=== PATIENT | male | born 1975 | race Caucasian/White ===

== ENCOUNTER 2017-10-01 22:01 | Emergency (ER) | payer OTHER, SELFPAY ==
[2017-10-01 22:02] VITALS: BP 170/81; PULSE 117; RESP 20; TEMP 37.5; O2SAT 96; BMI 32.8
--- NOTE | 2017-10-01 22:26 | ED.DCSUM_ITS ---
- ER Visit Summary Date of Service: 10/01/17 Chief Complaint: Abscess History of Present Illness: The patient is a 42 M left axillary abscess over 3 days. Seen in urgent care this morning states had incised and drained, there is exudative drainage. Cultures were sent per patient. Started on Bactrim. Using warm compresses, however swelling has returned. There is no drainage. He states he had a temporal artery temperature of 102.8. No medications were taken. No diabetes history. Similar symptoms not requiring I&D in the past. Physical Examination: General: Alert and oriented ?3, no acute distress HEENT: Normocephalic, atraumatic. Moist mucosa membranes Neck: supple, nontender. Cardiovascular: Regular rate and rhythm, no murmurs Respiratory: Normal breath sounds, symmetric, no distress Abdomen: Soft, nontender, nondistended Extremities: Nontender, no edema, pulses intact ?4 Neuro: no focal neurological deficits. Skin: Left axilla, 2 half centimeter area of induration with fluctuance, there is straight incision that has closed. Mild redness around this region. There is no streaking. Test Results: [] Emergency Department Course and Treatment: Evaluation patient's incision has closed with increasing fluctuance. I discussed re-incise and drainage for which she agreed. Performed with no complications. There was exudative drainage. Performed a cruciate incision to keep open, in addition, I did place 1/4 inch packing to allow continued drainage. He will finish his antibiotics. He will call PCP for follow-up on Saturday for a wound check. Patient afebrile in the ED. Is nontoxic. Nondiabetic. The redness has not progressed. Discussed good wound care with the patient. Return if any worsening symptoms. Treatment Plan: [] Disposition: Discharge Impression: Left axillary abscess status post I&D This note was generated with [email or web address] dictation software. It may contain incorrect words, spelling, and punctuation that were not noted in review of the chart prior to signing ED Disposition - Plan for ED Patient: Disposition: Home or Assisted Living Chief Complaint: Fever Diagnosis: Abscess of left axilla Instructions: ED Abscess IandD Referrals: Consuelo Burt MD [Primary Care Provider] - 2 Days Additional Instructions: Continue normal washing. If packing falls out keep out and did not repack. Finish her antibiotics. Follow-up with your doctor next 2-3 days for a wound check.
[2017-10-01 23:24] VITALS: RESP 16
== END 2017-10-01 23:25 | disposition home or self-care (01) ==
PROVIDERS: Emergency Provider Emergency Medicine; Family Provider Internal Medicine; PCP Internal Medicine
DX: L02.412 Cutaneous abscess of left axilla (principal)
CPT/HCPCS: 10061; 10060; 99283

== ENCOUNTER → 2018-05-16 07:01 | Outpatient (CLI) | payer OTHER, SELFPAY | PROVIDERS: Family Provider Internal Medicine; PCP Internal Medicine | DX: R69 Illness, unspecified (principal) ==

== ENCOUNTER → 2018-05-19 07:01 | Outpatient (CLI) | payer OTHER, SELFPAY ==
[2018-05-19 10:20] LABS: Absolute Lymphocyte Count 1.56 X10^3/ul (0.83-4.51); Absolute Neutrophil Count 3.8 X10^3/uL (2.0-7.7); Basophil# 0.04 X10^3/uL; Basophil% 0.6 % (0-1); Eosinophil# 0.12 X10^3/uL; Eosinophils% 1.9 % (0-5); Hematocrit 47.9 % (40-54); Hemoglobin 15.9 g/dl (13.0-16.5); Lymphocyte # 1.56 X10^3/ul (4.0); Lymphocyte % 25.2 % (19-41); Mean Corp Hgb Conc 33.2 g/gl (32-36); Mean Corpuscular Hgb 28.5 pg (27.0-32.0); Mean Corpuscular Volume 85.8 fL (80-94); Mean Platelet Vol. 8.9 fl (6.2-12.0); Monocyte# 0.67 X10^3/uL; Monocyte% 10.8 % (0-10); Neutrophil # 3.81 X10^3/uL (2.7-7.7); Neutrophil % 61.5 % (47-70); POSITIVE COUNT NO; POSITIVE DIFFERENTIAL NO; POSITIVE MORPHOLOGY NO; Platelet Count 286 K/mm3 (150-450); RBC Distribution Width CV 13.3 % (11.6-14.6); RBC Distribution Width SD 41.7 fl (35.1-43.9); Red Blood Count 5.58 M/mm3 (4.6-6.2); White Blood Count 6.2 K/mm3 (4.4-11.0)
[2018-05-19 10:44] LABS: ALB/GLOB Ratio 0.9 RATIO (0.9-2.4); AST(SGOT) 21 U/L (15-37); Alanine Aminotransfer ALT/SGPT 35 U/L (16-61); Albumin, Serum 3.5 g/dL (3.2-5.0); Alkaline Phosphatase 75 U/L (45-117); Anion Gap 9 (5-15); BUN 16 mg/dL (7-18); BUN/Creat Ratio 12.3 RATIO (10-20); Calcium,Total 8.5 mg/dL (8.5-10.1); Chloride 104 mmol/L (98-107); Cholesterol 226 mg/dL (200); EST Glomerular Filtration Rate 64 mL/min (>60); Est Glom Filt Rate - Afr Amer 78 mL/min (>60); Globulin 3.8 g/dL (2.2-4.2); Glucose 80 mg/dL (74-106); High Density Lipoprotein 32 mg/dL; PSA,Total - Annual Screen 0.64 ng/mL (0.00-4.00); Potassium 4.2 mmol/L (3.5-5.1); Protein, Total 7.3 g/dL (6.4-8.2); Sodium Level 140 mmol/L (136-145); Thyroid Stim Hormone (TSH) 1.67 uIU/mL (0.358-3.74); Triglycerides 107 mg/dL; Very Low Density Lipoprotein 21 mg/dL (5-40)
--- OUTSIDE RECORDS SUMMARY | 2018-08-20 16:43 | XMS RPT_ITS ---
:1975 Author Organization OHIP Care Team Providers Name Role Phone Rachel Cowart Attending Unavailable Consuelo Burt MD Referring Unavailable Rachel Cowart Consulting Unavailable DEAN DOCKERY Attending Unavailable DEAN DOCKERY Referring Unavailable Consuelo Burt Primary Care Unavailable DEAN DOCKERY Attending Unavailable DEAN DOCKERY Referring Unavailable Consuelo Burt Primary Care Unavailable Consuelo Burt Primary Care Unavailable Jamil Parmar Attending Unavailable Purpose Purpose PROBLEMS PROBLEMS No Problem Records FoundPROCEDURES PROCEDURES No Procedure Records FoundVITAL SIGNS VITAL SIGNS No Vital Signs Records FoundRESULTS RESULTS CBC W/DIFF, AUTOMATED Collected: 05/19/2018 Status: F Source: RICA 7:[address] [facility] REPOSITORY TYPE CODE TESTS RESULT OUT OF RANGE REFERENCE UNITS LAB L100.1000 4.4-11.0 K/mm3 Normal WBC 6.2 LAB L100.1200 4.6-6.2 M/mm3 Normal RBC 5.58 LAB L100.1300 13.0-16.5 g/dl Normal HGB 15.9 LAB L100.1400 40-54 % Normal HCT 47.9 LAB L100.1500 80-94 fL Normal MCV 85.8 LAB L100.1600 27.0-32.0 pg Normal MCH 28.5 LAB L100.1700 32-36 g/gl Normal MCHC 33.2 LAB L100.1810 11.6-14.6 % Normal RDW CV 13.3 LAB L100.1820 35.1-43.9 fl Normal RDW SD 41.7 LAB L100.1900 150-450 K/mm3 Normal PLT 286 LAB L100.2000 6.2-12.0 fl Normal MPV 8.9 LAB L100.2100 47-70 % Normal NEUT% 61.5 LAB L100.2200 19-41 % Normal LY% 25.2 LAB L100.2300 0-10 % High MONO% 10.8 LAB L100.2400 0-5 % Normal EO% 1.9 LAB L100.2500 0-1 % Normal BASO% 0.6 LAB L100.2550 0.0-0.9 % Normal IM GRAN % 0.000 Result Comment: IG% - Immature Granulocytes (promyelocytes, myelocytes and metamyelocytes) > 1% indicates that a LEFT SHIFT is Present. LAB L100.2620 2.0-7.7 X10 3/uL Normal Absolute Neut 3.8 LAB L100.2720 0.83-4.51 X10 3/ul Normal Absolute Lymph 1.56 Performed By: #### L100.0100 #### [facility] [address] [place], [address] COMPREHENSIVE METABOLIC Collected: 05/19/2018 Status: F Source: [facility] 7:[address] [facility] REPOSITORY TYPE CODE TESTS RESULT OUT OF RANGE REFERENCE UNITS LAB L501.0100 74-106 mg/dL Normal GLU 80 Result Comment: Please note revised GLUCOSE reference range effective 2017. LAB L501.1000 7-18 mg/dL Normal BUN 16 LAB L501.1100 0.70-1.30 mg/dL Normal CREAT,SERUM 1.30 Result Comment: The validity of the calculated GFR AND GFRAA in patients over 70 years has not been determined. Clinical correlation is essential. LAB L501.1110 >60 mL/min Normal EST GFR 64 Result Comment: Non- GFR Calc LAB L501.1115 >60 mL/min Normal EST GFR - AA 78 Result Comment: GFR Calc LAB L501.1300 10-20 RATIO Normal BUN/CRE 12.3 LAB L501.1500 6.4-8.2 g/dL T Normal PROT 7.3 LAB L501.1800 3.2-5.0 g/dL Normal ALB 3.5 LAB L501.1950 2.2-4.2 g/dL Normal GLOB 3.8 LAB L501.2000 0.9-2.4 RATIO Normal A/G 0.9 LAB L501.2200 8.5-10.1 mg/dL CA Normal 8.5 LAB L501.4100 15-37 U/L Normal AST 21 LAB L501.4305 45-117 U/L Normal ALK P 75 LAB L501.4405 16-61 U/L Normal ALT 35 LAB L501.4600 0.20-1.00 mg/dL T Normal BILI 0.30 LAB L501.5300 136-145 mmol/L NA Normal 140 LAB L501.5600 3.5-5.1 mmol/L K Normal 4.2 LAB L501.5900 98-107 mmol/L CL Normal 104 LAB L501.6100 21.0-32.0 mmol/L Normal CO2 27.0 LAB L501.6200 5-15 Normal GAP 9 Performed By: #### L500.4050, L500.4100, L501.9520, L501.9910 #### [facility] [address] [place], [address] LIPID PROFILE Collected: 05/19/2018 Status: F Source: [place] 7:[address] [facility] REPOSITORY TYPE CODE TESTS RESULT OUT OF RANGE REFERENCE UNITS LAB L501.4900 200 mg/dL High CHOL 226 Result Comment: <200 mg/dL Desirable 200-240 mg/dL Borderline >240 mg/dL High Risk LAB L501.5000 mg/dL Normal TRIG 107 Result Comment: The drugs N-Acetylcysteine and Metamizole may falsely depress this assay. Serum Triglycerides Reference Interval Normal <150 mg/dL Borderline high 150 - 199 mg/dL High 200 - 499 mg/dL Very High > or = 500 mg/dL LAB L501.6400 mg/dL Low HDL 32 Result Comment: The drugs N-Acetylcysteine and Metamizole may falsely depress this assay. Reference Range HDL <40 mg/dL Low HDL Cholesterol HDL >or= 60 mg/dL High HDL Cholesterol LAB L501.6500 0-130 mg/dL High LDL 173 LAB L501.6600 5-40 mg/dL Normal VLDL 21 Performed By: #### L500.4050, L500.4100, L501.9520, L501.9910 #### [facility] [address] [place], [address] THYROID STIM HORMONE Collected: 05/19/2018 Status: F Source: RICA (TSH) 7:[address] [facility] REPOSITORY TYPE CODE TESTS RESULT OUT OF RANGE REFERENCE UNITS LAB L501.9520 0.358-3.74 uIU/mL Normal TSH 1.67 Performed By: #### L500.4050, L500.4100, L501.9520, L501.9910 #### [facility] [address] [facility] [place], [address] PSA,TOTAL - ANNUAL Collected: 05/19/2018 Status: F Source: [place] SCREEN 7:[address] [facility] REPOSITORY TYPE CODE TESTS RESULT OUT OF RANGE REFERENCE UNITS LAB L501.9910 0.00-4.00 ng/mL Normal PSA,TOT 0.64 SCREEN Result Comment: This test was performed using the TPSA assay method for the psicofxp chemistry system. Values obtained with different assay methods cannot be used interchangably. When changing PSA assays in the course of monitoring a patient, additional sequential testing should be carried out to confirm baseline values. Performed By: #### L500.4050, L500.4100, L501.9520, L501.9910 #### [facility] [address] [facility] [place], [address] EMERGENCY DEPARTMENT Observed: 10/01/2017 Status: F Source: RICA SUMMARY 11:[address] [facility] REPOSITORY [facility] Medical Records Department [address] [address] Emergency Department Summary 10/01/17 2225 MR#: [id number] Acct: [id number] Name: ANTOINE STRONG Rep #: [id number] : 1975 42 From: Jamil Flores PCP: Consuelo Burt MD Status: PRE ER - ER Visit Summary Date of Service: 10/01/17 Chief Complaint: Abscess History of Present Illness: The patient is a 42 M left axillary abscess over 3 days. Seen in urgent care this morning states had incised and drained, there is exudative drainage. Cultures were sent per patient. Started on Bactrim. Using warm compresses, however swelling has returned. There is no drainage. He states he had a temporal artery temperature of 102.8. No medications were taken. No diabetes history. Similar symptoms not requiring I AND D in the past. Physical Examination: General: Alert and oriented 3, no acute distress HEENT: Normocephalic, atraumatic. Moist mucosa membranes Neck: supple, nontender. Cardiovascular: Regular rate and rhythm, no murmurs Respiratory: Normal breath sounds, symmetric, no distress Abdomen: Soft, nontender, nondistended Extremities: Nontender, no edema, pulses intact 4 Neuro: no focal neurological deficits. Skin: Left axilla, 2 half centimeter area of induration with fluctuance, there is straight incision that has closed. Mild redness around this region. There is no streaking. Test Results: [] Emergency Department Course and Treatment: Evaluation patient's incision has closed with increasing fluctuance. I discussed re-incise and drainage for which she agreed. Performed with no complications. There was exudative drainage. Performed a cruciate incision to keep open, in addition, I did place 1/4 inch packing to allow continued drainage. He will finish his antibiotics. He will call PCP for follow-up on Saturday for a wound check. Patient afebrile in the ED. Is nontoxic. Nondiabetic. The redness has not progressed. Discussed good wound care with the patient. Return if any worsening symptoms. Treatment Plan: [] Disposition: Discharge Impression: Left axillary abscess status post I AND D This note was generated with [employer] dictation software. It may contain incorrect words, spelling, and punctuation that were not noted in review of the chart prior to signing ED Disposition - Plan for ED Patient: Disposition: Home or Assisted Living Chief Complaint: Fever Diagnosis: Abscess of left axilla Instructions: ED Abscess IandD Referrals: Consuelo Burt MD [Primary Care Provider] - 2 Days Additional Instructions: Continue normal washing. If packing falls out keep out and did not repack. Finish her antibiotics. Follow-up with your doctor next 2-3 days for a wound check. What to do if you have Problems For any increased pain, shortness of breath, bleeding, nausea or vomiting, chest pain, or any unexpected problems, contact your Primary Care Provider. Call [facility] ([phone]) or report to the closest Emergency Room. Call 911 if necessary. 10/01/17 2313 <Electronically signed by Jamil Flores> Date Jamil Flores Cosigner Signature (If Indicated): Date CC: Consuelo Burt MD WOUND Observed: 10/01/2017 Status: F Source: DANIEL CULTURE/STAIN 7:15 AM [facility] REPOSITORY Sp. Request/Comment: - Swab Smear Result - Many Gram positive cocci in clusters --> ABNORMAL ALERT Rare Polymorphonuclear leukocytes Culture Result - Many Methicillin resistant Staphylococcus aureus --> ABNORMAL ALERT ORGANISM: Methicillin resistant Staphylococcus aureus METHOD: Minimum inhibitory concentration(Vitek) Antibiotic Interp MART Status Erythromycin RESISTANT >=8 F Clindamycin SUSCEPTIBLE 0.25 F Testing for inducible clindamycin resistance was performed. Tetracycline SUSCEPTIBLE <=1 F Vancomycin SUSCEPTIBLE 1 F Oxacillin RESISTANT >=4 F Oxacillin resistant staphylococci are resistant to all beta lactam antibiotics (except new cephalosporins with anti MRSA activity). Trimeth sulfameth SUSCEPTIBLE <=10 F Gentamicin SUSCEPTIBLE <=0.5 F Rifampin SUSCEPTIBLE <=0.5 F Rifampin should not be used alone for antimicrobial therapy. Daptomycin SUSCEPTIBLE 0.5 F Linezolid SUSCEPTIBLE 2 F Doxycycline SUSCEPTIBLE <=0.5 F Performed By: #### WCUL #### [facility] [address] [place], [place] [address] CNOV Observed: 10/01/2017 Status: COMPLETED Source: FREDY 6:45 AM [facility] REPOSITORY Office Visit (UCWSTR) ANTOINE STRONG ([id number]) 1975 M Date Time Provider Department 10/01/17 6:45 AM LAYA MOLINA) [facility] During your visit today, we recorded the following information about you: Temperature Pulse Respiration Blood pressure 97.4 degrees 78/minute 16/minute 122/78 Weight 112 kg Laya Molina PA-C 10/01/2017 8:36 AM Signed 10/01/2017 Patient presents with: Cyst: under left armpit x 3-4 days SUBJECTIVE: This is a 42 year old that is here today for Complaint(s) of cyst in left axilla x 3-4 days. Area is painful and slightly red. Notes some drainage last night. Denies fever/chills. PAST MEDICAL HISTORY Diagnosis Date - Acne - Dermatitis Poison Danna - Hyperlipidemia - Hypokalemia - Low testosterone - Vitamin D deficiency ALLERGIES Patient has no known allergies. MEDICATIONS Current Outpatient Prescriptions: ergocalciferol, vitamin D2, (VITAMIN D2 ORAL) Take by mouth. triamcinolone acetonide (KENALOG) 0.1 % cream Apply 1 application to affected area three times daily. Apply sparingly to area for rash/itching. (Patient not taking: Reported on 10/01/2017 ) imiquimod (ALDARA) 5 % cream Apply 1 application to affected area daily at bedtime. (Patient not taking: Reported on 10/01/2017 ) testosterone cypionate (DEPO-TESTOSTERONE) 200 mg/mL injection Inject 0.3 mL intramuscularly once each week. (Patient not taking: Reported on 10/01/2017 ) MULTIVIT ANDMINERALS/FERROUS FUM (MULTI VITAMIN ORAL) Take by mouth once daily. DOCOSAHEXANOIC ACID/EPA (FISH OIL ORAL) Take by mouth once daily. Takes when he remembers No current facility-administered medications for this visit. SOCIAL HISTORY Social History Marital status: Spouse name: Years of education: Number of children: 3 Occupational History Occupation Employer Comment [employer] Social History Main Topics Smoking status: Never Smoker Smokeless tobacco: Never Used Alcohol use: Yes Comment: rarely Drug use: No Sexual activity: Yes Partners with: Female Social History Narrative Patient has 2 biological children and one adopted REVIEW OF SYSTEMS All other reviewed and negative other than HPI. OBJECTIVE: BP 122/78 Pulse 78 Temp 36.3 ?C (97.4 ?F) (Tympanic) Resp 16 Wt 112 kg (247 lb) BMI 32.74 kg/m? APPEARANCE Well appearing, alert, in no acute distress, well- hydrated, well nourished. SKIN approximately 2 x 1.5 cm area of indurated erythema with fluctuance, overlying skin intact. Approximately 3.5 x 2 cm area of surrounding erythema located in left axilla. PLAN: After informed consent was obtained, using Betadine for cleansing and 1% LIDOCAINE for anesthetic, with sterile technique, an incision was made into the abscess cavity which was then drained of purulent material. Culture was obtained. Procedure was well tolerated. Dressing was applied and wound care instructions were provided. continue frequent warm tub soaks until abscess resolves. Medication(s) given today: Yes: Bactrim DS ASSESSMENT/PLAN: 1. Abscess, axilla - ICD9: 682.3, ICD10: L02.419 IANDD as above - Begin treatment with Trimethoprim-sulfamethozazole (Bactrim) 2 DS PO BID - No lymphangetic streaking, this was defined for patient to watch for and to seek medical care immediately if appears - Follow up for recheck in three days - WOUND CULTURE AND GRAM STAIN Return to clinic as needed for pain, increased swelling, or fever. The patient indicates understanding of these issues and agrees with the plan. Reviewed red flags and when to seek care sooner. Laya Molina PA-C Referring Provider: SELF [200] Allergies As of Date: 10/01/2017 (No Known Allergies) Date Reviewed: 10/01/2017 Reviewed by: Mari Katz Ma - Fully Assessed Reason for Visit: Cyst [260] Cmt: under left armpit x 3-4 days Primary Visit Diagnosis:Abscess, axilla [L02.419] Order(s):sulfamethoxazole-trimethoprim (BACTRIM DS) 800-160 mg per tabletTake 1 tablet by mouth twice daily for 10 days.Disp: 20 tabletRfl: 0 WOUND CULTURE AND GRAM STAIN [SQWCUL] Order #: [id number] Prescriptions as of 10/01/2017 Sig: VITAMIN D2 ORAL Take by mouth. SULFAMETHOXAZOLE 800 MG-TRIME* Take 1 tablet by mouth twice * TRIAMCINOLONE ACETONIDE 0.1 %* Apply 1 application to affect* Patient not taking: Reported on 10/01/2017 IMIQUIMOD 5 % TOPICAL CREAM P* Apply 1 application to affect* Patient not taking: Reported on 10/01/2017 TESTOSTERONE CYPIONATE 200 MG* Inject 0.3 mL intramuscularly* Patient not taking: Reported on 10/01/2017 MULTI VITAMIN ORAL Take by mouth once daily. FISH OIL ORAL Take by mouth once daily. Ta* Problem List As Of Date 10/01/2017 Noted Resolved ACNE NEC [L70.8] INVALID FOR* FOLLICULITIS///HAIR DISEASES NEC [L73.8] INVALID FOR* CORNS AND CALLOSITIES [L84] INVALID FOR* Male hypogonadism [E29.1] INVALID FOR* Prescriptions ordered this encounter Disp Refills Start End SULFAMETHOXAZOLE 800 MG-TRIMETHOPRIM* 20 t* 0 10/01/2017 10/11/2017 Cmt: Ok to give generic equivalent Route: ORAL Sig: Take 1 tablet by mouth twice daily for 10 days. Encounter Status:Closed by LAYA MOLINA PA-C on 10/01/17 PROGRESS Observed: 10/01/2017 Status: COMPLETED Source: [place] 6:43 AM [facility] REPOSITORY [facility] ID: [id number] Author: Laya Molina Service: (none) Author Type: Physician Pill Packer Type: Progress Notes Filed: 10/01/2017 8:36 AM Note Text: 10/01/2017 Patient presents with: Cyst: under left armpit x 3-4 days SUBJECTIVE: This is a 42 year old that is here today for Complaint(s) of cyst in left axilla x 3-4 days. Area is painful and slightly red. Notes some drainage last night. Denies fever/chills. PAST MEDICAL HISTORY Diagnosis Date - Acne - Dermatitis Poison Danna - Hyperlipidemia - Hypokalemia - Low testosterone - Vitamin D deficiency ALLERGIES Patient has no known allergies. MEDICATIONS Current Outpatient Prescriptions: ergocalciferol, vitamin D2, (VITAMIN D2 ORAL) Take by mouth. triamcinolone acetonide (KENALOG) 0.1 % cream Apply 1 application to affected area three times daily. Apply sparingly to area for rash/itching. (Patient not taking: Reported on 10/01/2017 ) imiquimod (ALDARA) 5 % cream Apply 1 application to affected area daily at bedtime. (Patient not taking: Reported on 10/01/2017 ) testosterone cypionate (DEPO-TESTOSTERONE) 200 mg/mL injection Inject 0.3 mL intramuscularly once each week. (Patient not taking: Reported on 10/01/2017 ) MULTIVIT ANDMINERALS/FERROUS FUM (MULTI VITAMIN ORAL) Take by mouth once daily. DOCOSAHEXANOIC ACID/EPA (FISH OIL ORAL) Take by mouth once daily. Takes when he remembers No current facility-administered medications for this visit. SOCIAL HISTORY Social History Marital status: Spouse name: Years of education: Number of children: 3 Occupational History Occupation Employer Comment [employer] Social History Main Topics Smoking status: Never Smoker Smokeless tobacco: Never Used Alcohol use: Yes Comment: rarely Drug use: No Sexual activity: Yes Partners with: Female Social History Narrative Patient has 2 biological children and one adopted REVIEW OF SYSTEMS All other reviewed and negative other than HPI. OBJECTIVE: BP 122/78 Pulse 78 Temp 36.3 ?C (97.4 ?F) (Tympanic) Resp 16 Wt 112 kg (247 lb) BMI 32.74 kg/m? APPEARANCE Well appearing, alert, in no acute distress, well-hydrated, well nourished. SKIN approximately 2 x 1.5 cm area of indurated erythema with fluctuance, overlying skin intact. Approximately 3.5 x 2 cm area of surrounding erythema located in left axilla. PLAN: After informed consent was obtained, using Betadine for cleansing and 1% LIDOCAINE for anesthetic, with sterile technique, an incision was made into the abscess cavity which was then drained of purulent material. Culture was obtained. Procedure was well tolerated. Dressing was applied and wound care instructions were provided. continue frequent warm tub soaks until abscess resolves. Medication(s) given today: Yes: Bactrim DS ASSESSMENT/PLAN: 1. Abscess, axilla - ICD9: 682.3, ICD10: L02.419 IANDD as above - Begin treatment with Trimethoprim-sulfamethozazole (Bactrim) 2 DS PO BID - No lymphangetic streaking, this was defined for patient to watch for and to seek medical care immediately if appears - Follow up for recheck in three days - WOUND CULTURE AND GRAM STAIN Return to clinic as needed for pain, increased swelling, or fever. The patient indicates understanding of these issues and agrees with the plan. Reviewed red flags and when to seek care sooner. Laya Molina PA-C ALLERGIES ALLERGIES DATE TYPE / CODE NAME / CODE REACTION SEVERITY SOURCE 10/01/2017 Drug No Known Unknown [facility] Allergy/416 Allergies/X12728 Hospital 844884(SNOM 0388(RXNORM) Repository ED CT) Drug NO KNOWN [facility] Class/75952 ALLERGIES [facility] 1003(SNOMED Repository CT) ENCOUNTERS ENCOUNTERS ADMIT/DISCHARGE ACCOUNT ADMITTING ENCOUNTER LOCATION SOURCE NUMBER CLASS 06/11/2018 [id number] Ambulatory Building:[facility] [place] Practices Repository 05/19/2018 [id number] Ambulatory [facility] ing:MTLAB Repository 05/16/2018 [id number] Ambulatory [facility] ing:MTLAB Repository 10/01/2017/10/02/19 [id number] Emergency [address] ing:ED Repository 10/01/2017/10/03/19 [id number] Ambulatory [address] Repository FUNCTIONAL STATUS FUNCTIONAL STATUS No Functional Status Records FoundEQUIPMENT EQUIPMENT No Equipment Records FoundPAYERS PAYERS ENCOUNTER GUARANTOR PAYER SUBSCRIBER SOURCE 06/11/2018 Antoine Benítez Primary Antoine Benítez OHIP Practices Sharon: Insurance:Brooke Herrera: Repository [id number] icy Number: [id number] Bey [id number] [address] [place], [place] Date:8767-82-65[place], [place] [address]Duf: (803) Name:[facility] [address] [address]Cos: (hp) [address], [place] [phone] (LH) [id number]: 06/11/2018 Secondary Antoine K OHIP Practices Insurance:[place] MillerDOB: Repository /BSPolicy Number: [id number] 4 Bey Date: - [place], [place] [id number] [address]Lcr: Name:[address] [address], [place] 30 (HP) [id number]: 06/11/2018 Tertiary Antoine K OHIP Practices Insurance:Medical MillerDOB: Repository [facility] [id number] Number: 4 Bey [id number] [place], [place] Date:2015-06-03 [address]Nlb: [id number] ~(3 Name:[address] HP) [address], [place] [id number]: 05/19/2018 ANTOINE K Primary ANTOINE K Rica [id number] Insurance:AULTCAREPol MILLERDOB: Community BEY icy Number: [id number], [place] [id number] Repository [address]Okx: [address] e Date:2210-34-29SJ [phone] (HP) [address] [place] [address]SX: 05/19/2018 Secondary NOT GIVENUNK [place] Insurance:SELF PAY [facility] Number: Effective Repository Date:2018-05-19 05/16/2018 ANTOINE K Primary ANTOINE K [place] [id number] Insurance:AULTCAREPol MILLERDOB: Community BEY icy Number: [id number], [place] [id number] Repository [address]Tdx: [address] Date:4917-92-69QF [phone] (HP) [address], [place] [address]OX: 05/16/2018 Secondary NOT GIVENUNK [place] Insurance:SELF PAY [facility] Number: Effective Repository Date:2018-05-16 10/01/2017 ANTOINE K Primary ANTOINE K [place] [id number] Insurance:AULTCARESanjeev BOYS TOWNDOB: [facility] BEY [facility] Number: [id number], [place] [id number] Repository [address]Dpc: [phone]) e Date:4724-30-60OK [phone] () [address], [place] [address]ND: 10/01/2017 Secondary NOT GIVENUNK [place] Insurance:SELF PAY [facility] Number: Effective Repository Date:2017-10-01 SOCIAL HISTORY SOCIAL HISTORY No Social History Records FoundFAMILY HISTORY FAMILY HISTORY No Family History Records FoundPREGNANCY No Status Records FoundADVANCE DIRECTIVES ADVANCE DIRECTIVES No Advanced Directives Records FoundINFORMATION SOURCE INFORMATION SOURCE DATE CREATED AUTHOR AUTHOR'S ORGANIZATION 06/25/2018 TRI
== END ==
PROVIDERS: Family Provider Internal Medicine; PCP Internal Medicine
DX: E29.1 Testicular hypofunction (principal); Z12.5 Encounter for screening for malignant neoplasm of prostate
CPT/HCPCS: 36415; 80053; 80061; 84153; 84443; 85025; G0103

== ENCOUNTER → 2018-12-02 07:07 | Outpatient (CLI) | payer SELFPAY ==
[2018-12-03 16:07] LABS: CHOLESTEROL TOTAL 289 mg/dL (100-199); HDL-C 44 mg/dL (>39); HDL-P TOTAL 28.4 umol/L (>=30.5); SMALL LDL-P 1481 nmol/L (<=527); TRIGLYCERIDES 115 mg/dL (0-149)
[2018-12-05 16:53] LABS: Testosterone Free 11.6 pg/mL (6.8-21.5)
[2018-12-05 17:04] LABS: INSULIN RESISTANCE SCORE 43 (<=45); LDL SIZE 20.9 nm (>20.5); LDL-C 222 mg/dL (0-99); LDL-P 2552 nmol/L (<1000)
== END ==
PROVIDERS: Family Provider Internal Medicine; PCP Internal Medicine; Referring Provider Nurse Practitioner; Visit Provider Nurse Practitioner
DX: E55.9 Vitamin D deficiency, unspecified (principal); E29.1 Testicular hypofunction; E78.00 Pure hypercholesterolemia, unspecified
CPT/HCPCS: 36415; 80061; 83704; 84402

== ENCOUNTER → 2018-12-23 13:30 | Outpatient (CLI) | payer SELFPAY ==
--- NOTE | 2018-12-23 13:36 | CT_ITS ---
STUDY: CARDIAC CALCIUM SCORING - CT CHEST REASON FOR EXAM: Male, 43 years old. Screening RADIATION DOSAGE (If Supplied By Facility): CTDIvol = ( 12.19 ) mGy, DLP = ( 170.66 ) mGycm TECHNIQUE: Axial non-enhanced images were acquired through the heart for the sole purpose of measuring coronary artery calcium. Individualized dose optimization techniques were used for this CT. COMPARISON: None. FINDINGS: Please see the patient's medical record for a personalized calcium score. The visualized lungs are clear. The visualized soft tissues are within normal limits. CT/Limited Chest CT w/CCTA IMPRESSION: Please see the patient's medical record for a personalized calcium score. Please go to: [email or web address] , for a description of the calculator. Electronically Signed: Jose Mejia, at 14:40 EDT Tel , Service support ,
[2018-12-23 14:14] VITALS: BP 145/75; PULSE 62; RESP 16; O2SAT 99; BMI 32.1
--- NOTE | 2018-12-25 10:08 | CA.SCORE ---
Calcium Scoring Date of Study:: 12/23/18 Coronary Calcium Scoring: High-resolution Computed Tomographic imaging of the chest was performed on [ ], with particular attention paid to the coronary arteries. Images from the examination were analyzed for the presence and extent of coronary artery calcification , using coronary calcium quantification software. The patient tolerated the procedure well and there were no complications. The results of the coronary calcification analysis are provided below. - Findings Left Main (LM): 0 Left Anterior Descending (LAD): 0 Left Circumflex (LCX): 0 Right Coronary Artery (RCA): 0 Total Agatston Score: 0 Percentile Rankin - Conclusion Calcium Scoring Interpretation: Calcium Score Interpretation 0 No identifiable atherosclerotic plaque. Very low cardiovascular disease risk. <5% chance of presence coronary artery disease A Negative Examination
== END ==
PROVIDERS: Family Provider Internal Medicine; PCP Internal Medicine; Referring Provider Nurse Practitioner; Visit Provider Nurse Practitioner
DX: E78.00 Pure hypercholesterolemia, unspecified (principal)
CPT/HCPCS: 75571; 76380

== ENCOUNTER → 2019-05-05 07:10 | Outpatient (CLI) | payer OTHER, SELFPAY ==
[2018-12-23 14:14] VITALS: BMI 32.1
[2019-05-05 10:21] LABS: Absolute Lymphocyte Count 1.29 X10^3/uL (0.83-4.51); Absolute Neutrophil Count 2.7 X10^3/uL (2.0-7.7); Basophil# 0.04 X10^3/uL; Basophil% 0.9 % (0-1); Eosinophil# 0.07 X10^3/uL; Eosinophils% 1.5 % (0-5); Hematocrit 47.2 % (40-54); Hemoglobin 15.4 g/dL (13.0-16.5); Lymphocyte # 1.29 X10^3/ul (4.0); Lymphocyte % 27.7 % (19-41); Mean Corp Hgb Conc 32.6 g/dL (32-36); Mean Corpuscular Hgb 28.1 pg (27.0-32.0); Mean Corpuscular Volume 86.1 fL (80-94); Mean Platelet Vol. 8.7 fl (6.2-12.0); Monocyte% 12.9 % (0-10); NRBC Flagged by Analyzer 0 % (0-5); Neutrophil # 2.65 X10^3/uL (2.7-7.7); Neutrophil % 56.8 % (47-70); Platelet Count 229 K/mm3 (150-450); RBC Distribution Width CV 13.7 % (11.6-14.6); RBC Distribution Width SD 43.5 fl (35.1-43.9); Red Blood Count 5.48 M/mm3 (4.6-6.2); White Blood Count 4.7 K/mm3 (4.4-11.0)
[2019-05-05 10:55] LABS: AST(SGOT) 55 U/L (15-37); Alanine Aminotransfer ALT/SGPT 118 U/L (16-61); Albumin, Serum 3.7 g/dL (3.2-5.0); Alkaline Phosphatase 70 U/L (45-117); Anion Gap 5 (5-15); BUN 15 mg/dL (7-18); BUN/Creat Ratio 11.8 RATIO (10-20); Calcium,Total 8.9 mg/dL (8.5-10.1); Chloride 107 mmol/L (98-107); Cholesterol 289 mg/dL (200); Creatinine, Serum 1.27 mg/dL (0.70-1.30); EST Glomerular Filtration Rate 66 mL/min (>60); Est Glom Filt Rate - Afr Amer 79 mL/min (>60); Globulin 3.6 g/dL (2.2-4.2); Glucose 80 mg/dL (74-106); High Density Lipoprotein 42 mg/dL; PSA,Total - Annual Screen 0.38 ng/mL (0.00-4.00); Potassium 4.2 mmol/L (3.5-5.1); Protein, Total 7.3 g/dL (6.4-8.2); Sodium Level 139 mmol/L (136-145); Thyroid Stim Hormone (TSH) 2.11 uIU/mL (0.358-3.74); Triglycerides 131 mg/dL; Very Low Density Lipoprotein 26 mg/dL (5-40)
[2019-05-08 12:10] LABS: Testosterone, % Free 2.84 % (1.50-4.20); Testosterone, Free 18.89 ng/dL (5.00-21.00)
[2019-05-08 15:38] LABS: Estrogen, Total, Serum 145 pg/mL (40-115); Testosterone, Total 665 ng/dL (264-916)
== END ==
PROVIDERS: Family Provider Internal Medicine; PCP Internal Medicine; Referring Provider Nurse Practitioner; Visit Provider Nurse Practitioner
DX: E29.1 Testicular hypofunction (principal); N18.2 Chronic kidney disease, stage 2 (mild); Z12.5 Encounter for screening for malignant neoplasm of prostate
CPT/HCPCS: 36415; 80053; 80061; 82672; 84153; 84402; 84403; 84443; 85025; G0103

== ENCOUNTER → 2019-05-18 08:21 | Outpatient (CLI) | payer OTHER, SELFPAY ==
[2018-12-23 14:14] VITALS: BMI 32.1
--- NOTE | 2019-05-18 08:32 | US_ITS ---
STUDY: ABDOMINAL ULTRASOUND - RIGHT UPPER QUADRANT REASON FOR VISIT: Male, 43 years old elevated liver enzymes. TECHNIQUE: Ultrasound evaluation of the right upper quadrant was performed with real-time and static small-scale imaging. TECHNICAL QUALITY: Adequate. COMPARISON: None. FINDINGS: Liver: The liver measures 16.1 cm. There is normal echogenicity of the liver. The bile ducts are within normal limits. There is hepatic color flow. The direction of portal flow is hepatopetal. There is no demonstrated mass lesion. Gallbladder: Normal distended gallbladder. The gallbladder wall measures 2.7 mm. There is a negative sonographic Villarreal''s sign. There is no pericholecystic fluid. There are no gallstones. Common Bile Duct (C.B.D.): The common bile duct measures 4.2 mm. Pancreas: Normal size of the head, body and tail of the pancreas. There is normal echogenicity of the pancreas. There is no demonstrated pancreatic mass or cyst. Right Kidney: Normal size of the right kidney. The right kidney measures 12.0 cm x 6.3 cm x 6.6 cm. Normal renal cortex. The right cortex measures 1.8 cm. There is a 1.6 cm x 2 cm x 1.7 cm right renal cyst. There is no right hydronephrosis. US/Liver IMPRESSION: Right renal cyst. Electronically Signed: Naif Enrique, at 14:56 EST , Service support ,
== END ==
PROVIDERS: Family Provider Nurse Practitioner; PCP Nurse Practitioner; Referring Provider Nurse Practitioner; Visit Provider Nurse Practitioner
DX: R74.8 Abnormal levels of other serum enzymes (principal)
CPT/HCPCS: 76705

== ENCOUNTER → 2020-06-14 09:28 | Outpatient (CLI) | payer SELFPAY ==
[2018-12-23 14:14] VITALS: BMI 32.1
[2020-06-13 10:24] VITALS: BMI 33.2
== END ==
PROVIDERS: PCP Nurse Practitioner; Referring Provider Nurse Practitioner; Visit Provider Nurse Practitioner
DX: Z13.89 Encounter for screening for other disorder (principal)

== ENCOUNTER → 2020-06-16 06:31 | Outpatient (CLI) | payer OTHER, SELFPAY ==
[2020-06-13 10:24] VITALS: BMI 33.2
[2020-06-16 07:12] LABS: Hematocrit 48.8 % (40-54); Hemoglobin 16.3 g/dL (13.0-16.5)
[2020-06-16 07:47] LABS: AST(SGOT) 29 U/L (15-37); Alanine Aminotransfer ALT/SGPT 66 U/L (16-61); Albumin, Serum 3.7 g/dL (3.2-5.0); Alkaline Phosphatase 68 U/L (45-117); Anion Gap 2 (5-15); BUN 17 mg/dL (7-18); BUN/Creat Ratio 13.4 RATIO (10-20); Calcium,Total 8.8 mg/dL (8.5-10.1); Chloride 107 mmol/L (98-107); Cholesterol 289 mg/dL (200); Creatinine, Serum 1.27 mg/dL (0.70-1.30); EST Glomerular Filtration Rate 65 mL/min (>60); Est Glom Filt Rate - Afr Amer 79 mL/min (>60); Globulin 3.6 g/dL (2.2-4.2); Glucose 85 mg/dL (74-106); High Density Lipoprotein 42 mg/dL; Potassium 4.1 mmol/L (3.5-5.1); Protein, Total 7.3 g/dL (6.4-8.2); Sodium Level 138 mmol/L (136-145); Triglycerides 106 mg/dL; Very Low Density Lipoprotein 21 mg/dL (5-40)
[2020-06-16 08:50] LABS: Vitamin D,25 Hydroxy 50.8 ng/mL
[2020-06-19 20:07] LABS: Testosterone, Free 68.05 ng/dL (5.00-21.00)
[2020-06-20 11:16] LABS: Testosterone, % Free 4.96 % (1.50-4.20); Testosterone, Total 1372 ng/dL (264-916)
== END ==
PROVIDERS: PCP Nurse Practitioner; Referring Provider Internal Medicine Endocrinology, Diabetes & Metabolism; Visit Provider Internal Medicine Endocrinology, Diabetes & Metabolism
DX: E29.1 Testicular hypofunction (principal); E78.2 Mixed hyperlipidemia; E55.9 Vitamin D deficiency, unspecified
CPT/HCPCS: 36415; 80053; 80061; 82306; 84402; 84403; 85014; 85018

== ENCOUNTER → 2020-10-14 07:07 | Outpatient (CLI) | payer OTHER, SELFPAY ==
[2020-06-13 10:24] VITALS: BMI 33.2
[2020-10-14 10:30] LABS: Absolute Lymphocyte Count 1.35 X10^3/uL (0.83-4.51); Absolute Neutrophil Count 3.6 X10^3/uL (2.0-7.7); Basophil# 0.04 X10^3/uL; Basophil% 0.7 % (0-1); Eosinophil# 0.08 X10^3/uL; Eosinophils% 1.4 % (0-5); Hematocrit 51.3 % (40-54); Hemoglobin 16.2 g/dL (13.0-16.5); Lymphocyte # 1.35 X10^3/ul (0.83-4.51); Lymphocyte % 23.6 % (19-41); Mean Corp Hgb Conc 31.6 g/dL (32-36); Mean Corpuscular Hgb 27.7 pg (27.0-32.0); Mean Corpuscular Volume 87.7 fL (80-94); Mean Platelet Vol. 9.3 fl (6.2-12.0); Monocyte# 0.66 X10^3/uL; Monocyte% 11.5 % (0-10); NRBC Flagged by Analyzer 0 % (0-5); Neutrophil # 3.58 X10^3/uL (2.7-7.7); Neutrophil % 62.5 % (47-70); Platelet Count 282 K/mm3 (150-450); RBC Distribution Width CV 13.1 % (11.6-14.6); RBC Distribution Width SD 42.3 fl (35.1-43.9); Red Blood Count 5.85 M/mm3 (4.6-6.2); White Blood Count 5.7 K/mm3 (4.4-11.0)
[2020-10-14 15:07] LABS: AST(SGOT) 26 U/L (15-37); Alanine Aminotransfer ALT/SGPT 42 U/L (16-61); Albumin, Serum 3.7 g/dL (3.2-5.0); Alkaline Phosphatase 66 U/L (45-117); Anion Gap 4 (5-15); BUN 17 mg/dL (7-18); BUN/Creat Ratio 12.4 RATIO (10-20); Chloride 103 mmol/L (98-107); Cholesterol 266 mg/dL (200); Creatinine, Serum 1.37 mg/dL (0.70-1.30); EST Glomerular Filtration Rate 60 mL/min (>60); Est Glom Filt Rate - Afr Amer 72 mL/min (>60); Estradiol 38.2 pg/mL; Globulin 3.6 g/dL (2.2-4.2); Glucose 79 mg/dL (74-106); High Density Lipoprotein 43 mg/dL; PSA,Total - Annual Screen 0.66 ng/mL (0.00-4.00); Potassium 4.3 mmol/L (3.5-5.1); Protein, Total 7.3 g/dL (6.4-8.2); Sodium Level 138 mmol/L (136-145); Triglycerides 90 mg/dL; Very Low Density Lipoprotein 18 mg/dL (5-40)
[2020-10-19 16:11] LABS: Testosterone Free 9.3 pg/mL (6.8-21.5)
== END ==
PROVIDERS: PCP Nurse Practitioner; Referring Provider Nurse Practitioner; Visit Provider Nurse Practitioner
DX: N18.2 Chronic kidney disease, stage 2 (mild) (principal); E29.1 Testicular hypofunction; E78.00 Pure hypercholesterolemia, unspecified; Z12.5 Encounter for screening for malignant neoplasm of prostate
CPT/HCPCS: 36415; 80053; 80061; 82670; 84153; 84402; 85025; G0103